=== PATIENT | male | born 1955 | race Caucasian/White ===

== ENCOUNTER 2021-10-12 21:53 | Emergency (ER) | payer BC ==
[2021-10-12] MEDS: Proparacaine 0.5% Ophth Soln 15 ML Bottle EYELF ONE (22:01)
[2021-10-12] MEDS: Fluorescein 1 MG Ophth Strip EYELF ONE (22:01)
[2021-10-12] MEDS: Take Home: Gentamicin 0.3% Ophth Soln 5 ML, 1 Bottle Pack EYEBOTH ONE (22:15)
== END 2021-10-12 22:20 | disposition home or self-care (01) ==
LOC: VM.ED 21:53
DX: S05.02XA Injury of conjunctiva and corneal abrasion without foreign body, left eye, initial encounter (principal); W22.09XA Striking against other stationary object, initial encounter
CPT/HCPCS: 99283; A9270-GY